=== PATIENT | female | born 1930 | race Caucasian/White ===

== ENCOUNTER 2019-09-29 16:59 | Outpatient (CLI) | payer OTHER, BC, SELFPAY ==
[~2019-09-29 16:59] MED LIST: AMLO5TAB4 PO; BIOT10004 PO; CA C-2 PO; FOLI-43 PO; HYDR200T80 PO; LOSA100T3 PO; OMEP20CA11 PO; PRED2.5T4 PO
== END 2019-09-29 21:58 | disposition home or self-care (01) ==
LOC: SRD 16:59
DX: R91.8 Other nonspecific abnormal finding of lung field (principal); J18.9 Pneumonia, unspecified organism
CPT/HCPCS: 71045